=== PATIENT | female | born 1950 | race Caucasian/White ===

== ENCOUNTER → 2018-07-17 17:25 | Outpatient (CLI) | payer MEDICARE ==
[~2018-07-17 17:25] MED LIST: ALDACTONE50 MG PO; CALAN SR240 MG PO; CELEXA20 MG PO; CYMBALTA30 MG PO; ELIQUIS2.5 MG PO; KEFLEX500 MG PO; LIPITOR40 MG PO; OXYCODONE HCL5 MG PO; POTASSIUM CHLO10 ME1 PO; TRIAMTERENE-HCT1 TA1 PO; TYLENOL #4 W/CO1 TAB PO; VISTARIL50 MG PO; ZYLOPRIM300 MG PO
[2018-08-05 14:35] VITALS: BMI 37.1
== END | disposition home or self-care (01) ==
LOC: D.LABREF 17:25
DX: M17.12 Unilateral primary osteoarthritis, left knee (principal); Z11.8 Encounter for screening for other infectious and parasitic diseases

== ENCOUNTER 2018-07-30 10:00 | Inpatient (IN) | payer OTHER ==
[~2018-07-30] VITALS: Ht 162.6 cm; Wt 98.2 kg
--- NOTE | ~2018-07-30 | OP ---
PATIENT NAME: GARTH PENNINGTON MEDICAL RECORD: [id number] :46 LOCATION:[id number] ADMISSION DATE:08/05/18 SURGEON: RODO WESTBROOK DO DATE OF OPERATION: 08/05/2018 PROCEDURE PERFORMED: Left total knee arthroplasty. PREOPERATIVE DIAGNOSIS: Severe left knee osteoarthritis. POSTOPERATIVE DIAGNOSIS: Severe left knee osteoarthritis. INDICATIONS: Ms. Pennington is a 68-year-old female who presented to my office a few weeks ago after having been treated by her family practice physician very well for knee osteoarthritis. She was to the point where conservative management was no longer working. We had x-rays, standing x-rays revealed severe swin-nw-ewyh arthritis with medial shift of the femur on the tibia. She was aware that she needs something done surgically that she is at higher risk for infection due to her size, but she needed something done. She is aware of the risks of infection, bleeding, damage to nerves, vessels, even fracture. When she consented to this, she is aware of the pre and postop protocols and that her motion was not good preoperatively and may not be good postoperatively either when she was aware that she consented to the procedure. SURGEON: Rodo Westbrook DO DESCRIPTION OF PROCEDURE: The patient was given a block by anesthesia preoperatively, taken to the operative suite, laid in supine position. The left lower extremity was prepped and draped in sterile fashion. Timeout was performed, everyone was in agreement of correct side, site, patient, and procedure. After the patient had been given gentamicin and Ancef, the incision was made in the midline of the anterior knee. Careful dissection was made down to the capsule. A capsulotomy was performed, medial patella was then everted. The fat pad was removed partially and once the fat pad had been removed, the patella had been everted and milled down to accommodate the implant. The knee was then flexed up. The distal femur was cut. Once the skin was cut, the tibia and was cut and then recut and then the menisci were removed. The whole time coagulation was done. The tourniquet was inflated prior to making the incision and Esmarch was used to exsanguinate the left lower extremity and was up for 62 minutes throughout the procedure. Once the tibia had been cut and then recut in order to accommodate for the implant, the menisci were removed. The posterior capsule was treated with the Aquamantys to prevent bleeding and all the bleeding areas were treated with it as well. The knee was then flexed up and the femur was sized to be a 60. The cuts were made and once the cuts were made, the trial was put into place. She did have extreme laxity medially, likely due to the femur being shifted and her preoperative x-rays were noted. We decided to do a posterior stabilized femur to get more rigid implant and then the femur was cut. The PS block was put on the femur and this was cut for the notch. The tibia was then punched and drilled and irrigated and the patella was also drilled to use a size 28 patella and once the tibia was done and prepped, the cement was mixed and the cement was put on the tibia and on the implant and impacted in place twice. Excess cement was removed. The femur was impacted into place and the poly was put in between them and brought into extension and then the patella was put in with the cement on the patella and the patellar implant and a squeezer was put into place. Excess cement was removed that. The knee was thoroughly irrigated. Tourniquet was let down at 62 minutes. Once the OPERATIVE REPORT [id number] [facility] tourniquet was let down, all areas were treated with the Aquamantys and then sized to be an 18 poly, posterior stabilized. This was put in and seemed to be very stable. The vancomycin powder was then put into the knee joint as well as Surgicel beads. A #1 runner was used to close the capsule in a vxbxpn-qa-bsqyw fashion and then Stratafix barbed. A #1 suture was used and ran along the capsule as well. The skin was then closed with 2-0 Vicryl in an inverted interrupted fashion and ZipLine was put on the skin to keep it closed. Adaptic, 4 x 4s, ABD, Webril and then Mike wrap were placed on the knee and a RACHAEL hose stockinette placed on the knee. The patient was then awakened and taken to recovery in stable condition. Blood loss approximately 150 mL. Complications were none. TRANSINT:[id number] Voice Confirmation ID: [id number] DOCUMENT ID: [id number] RODO WESTBROOK DO at [id number] CC: [id number] DICTATION DATE: 08/05/18 1350 PLUNGER SHOVEL OPERATOR: 08/05/18 1420 ADM IN [place] [id number] [place] [id number]
[2018-07-30] MEDS ORDERED: ALDACTONE50 MG PO (12:08)
[2018-07-30] MEDS ORDERED: TYLENOL #4 W/CO1 TAB PO (12:08)
[2018-07-30 12:18] LABS: BASOPHILS 0.2 % (0-2); EOSINOPHILS 1.5 % (0-7); HEMATOCRIT 44.3 % (36.0-48.0); HEMOGLOBIN 14.4 g/dL (12-16); IMMATURE GRANULOCYTES 0.2 % (0-5); LYMPHOCYTES 23.2 % (15-50); MCHC 32.5 g/dL (31.0-37.0); MCV 86.2 fL (80.0-100.0); MEAN PLATELET VOLUME 9.7 fL (7.4-10.4); MONOCYTES 6.5 % (2-11); NEUTROPHILS 68.4 % (40-80); PLATELET COUNT 360 10x3/uL (130-400); RBC 5.14 10x6/uL (4.00-5.40); RDW 15.1 % (11.5-14.5)
[2018-07-30 12:19] LABS: ANION GAP 13.9 mmol/L (8-16); CARBON DIOXIDE 24.9 mmol/L (21.0-32.0); CREATININE - SERUM 1.6 mg/dL (0.6-1.3); POTASSIUM - SERUM 4.8 mmol/L (3.5-5.1)
[2018-07-30 12:31] LABS: APPEARANCE SL CLDY (CLEAR); BILIRUBIN NEGATIVE (NEGATIVE); COLOR YELLOW (YELLOW); EPITHELIAL CELLS 0-5 /hpf (0-5); GLUCOSE NEGATIVE (NEGATIVE); KETONE NEGATIVE (NEGATIVE); NITRITE POSITIVE (NEGATIVE); PROTEIN NEGATIVE (NEGATIVE); RED CELLS - URINE RARE /hpf (0-5); SPECIFIC GRAVITY 1.015 (1.005-1.020); UROBILINOGEN NORMAL (NORMAL)
[2018-07-30 12:32] LABS: BACTERIA MANY /hpf (NONE SEEN); HYALINE CAST RARE /lpf (NONE SEEN); MUCUS <1+ /lpf (NONE SEEN)
[2018-07-30] MEDS ORDERED: TRIAMTERENE-HCT1 TA1 PO (12:32)
[2018-07-30] MEDS ORDERED: POTASSIUM CHLO10 ME1 PO (12:33)
[2018-07-30] MEDS ORDERED: CYMBALTA30 MG PO (12:33)
[2018-07-30] MEDS ORDERED: ZYLOPRIM300 MG PO (12:33)
[2018-07-30] MEDS ORDERED: CALAN SR240 MG PO (12:33)
[2018-07-30] MEDS ORDERED: CELEXA20 MG PO (12:34)
[2018-07-30] MEDS ORDERED: LIPITOR40 MG PO (12:34)
[2018-07-30 12:37] LABS: INR 1.06 (0.85-1.17); PROTIME 13.4 SECONDS (11.6-15.0)
[2018-08-05 09:25] VITALS: BP 101/64; BMI 37.1
[2018-08-05 10:28] LABS: BASOPHILS 0.6 % (0-2); EOSINOPHILS 1.8 % (0-7); HEMATOCRIT 43.2 % (36.0-48.0); IMMATURE GRANULOCYTES 0.1 % (0-5); LYMPHOCYTES 19.6 % (15-50); MCH 28.2 pg (26.0-34.0); MCHC 32.4 g/dL (31.0-37.0); MCV 86.9 fL (80.0-100.0); MEAN PLATELET VOLUME 9.8 fL (7.4-10.4); MONOCYTES 8.5 % (2-11); NEUTROPHILS 69.4 % (40-80); PLATELET COUNT 294 10x3/uL (130-400); RBC 4.97 10x6/uL (4.00-5.40); RDW 15.2 % (11.5-14.5)
[2018-08-05 14:31] VITALS: BP 151/73
[2018-08-05 14:35] VITALS: Ht 162.6 cm; Wt 98.2 kg
[2018-08-05 16:14] VITALS: BP 151/73
[2018-08-05 20:00] VITALS: BP 111/50
[2018-08-06 08:20] LABS: BASOPHILS 0.1 % (0-2); EOSINOPHILS 0 % (0-7); HEMATOCRIT 38.7 % (36.0-48.0); HEMOGLOBIN 12.4 g/dL (12-16); IMMATURE GRANULOCYTES 0.3 % (0-5); LYMPHOCYTES 5.5 % (15-50); MCH 27.6 pg (26.0-34.0); MEAN PLATELET VOLUME 9.6 fL (7.4-10.4); MONOCYTES 9.9 % (2-11); NEUTROPHILS 84.2 % (40-80); PLATELET COUNT 270 10x3/uL (130-400); RDW 14.9 % (11.5-14.5)
[2018-08-06 08:28] VITALS: BP 122/55
[2018-08-06 08:40] LABS: ALBUMIN 3.1 g/dL (3.4-5.0); ANION GAP 10.5 mmol/L (8-16); BILIRUBIN - TOTAL 0.32 mg/dL (0.2-1.3); CALCIUM 8.6 mg/dL (8.5-10.1); CARBON DIOXIDE 25.4 mmol/L (21.0-32.0); CREATININE - SERUM 1.6 mg/dL (0.6-1.3); POTASSIUM - SERUM 4.9 mmol/L (3.5-5.1); PROTEIN - SERUM 6.5 g/dL (6.4-8.2)
[2018-08-06 11:10] VITALS: BP 112/55
[2018-08-06 15:53] VITALS: BP 123/56
[2018-08-06 22:11] VITALS: BP 110/53
[2018-08-07 04:12] VITALS: BP 107/45
[2018-08-07 05:54] LABS: BASOPHILS 0.1 % (0-2); EOSINOPHILS 0.8 % (0-7); HEMATOCRIT 35.4 % (36.0-48.0); HEMOGLOBIN 11.3 g/dL (12-16); IMMATURE GRANULOCYTES 0.3 % (0-5); LYMPHOCYTES 12.8 % (15-50); MCH 27.6 pg (26.0-34.0); MCHC 31.9 g/dL (31.0-37.0); MCV 86.3 fL (80.0-100.0); MEAN PLATELET VOLUME 10.2 fL (7.4-10.4); MONOCYTES 13.1 % (2-11); NEUTROPHILS 72.9 % (40-80); PLATELET COUNT 251 10x3/uL (130-400); RDW 15.2 % (11.5-14.5); WBC 11.4 10x3/uL (4.8-10.8)
[2018-08-07 06:24] LABS: ALBUMIN 2.9 g/dL (3.4-5.0); BILIRUBIN - TOTAL 0.22 mg/dL (0.2-1.3); CALCIUM 8.2 mg/dL (8.5-10.1); CARBON DIOXIDE 23.7 mmol/L (21.0-32.0); CREATININE - SERUM 1.6 mg/dL (0.6-1.3); PROTEIN - SERUM 5.6 g/dL (6.4-8.2)
[2018-08-07 06:49] LABS: POTASSIUM - SERUM 5.7 mmol/L (3.5-5.1)
[2018-08-07 09:23] VITALS: BP 140/66
[2018-08-07 12:25] VITALS: BP 122/56
[2018-08-07 17:02] VITALS: BP 131/67
[2018-08-07 21:08] VITALS: BP 122/60
[2018-08-08 04:45] VITALS: BP 118/53
[2018-08-08 05:09] LABS: HEMATOCRIT 36.7 % (36.0-48.0); HEMOGLOBIN 11.9 g/dL (12-16); LYMPHOCYTES 12.8 % (15-50); MCH 27.7 pg (26.0-34.0); MCHC 32.4 g/dL (31.0-37.0); MCV 85.5 fL (80.0-100.0); MEAN PLATELET VOLUME 10.2 fL (7.4-10.4); NEUTROPHILS 71.9 % (40-80); PLATELET COUNT 279 10x3/uL (130-400); RBC 4.29 10x6/uL (4.00-5.40); RDW 15.1 % (11.5-14.5); WBC 9.7 10x3/uL (4.8-10.8)
[2018-08-08 05:21] LABS: ALBUMIN 2.8 g/dL (3.4-5.0); ANION GAP 10.7 mmol/L (8-16); BILIRUBIN - TOTAL 0.26 mg/dL (0.2-1.3); CALCIUM 8.8 mg/dL (8.5-10.1); CARBON DIOXIDE 25.5 mmol/L (21.0-32.0); CREATININE - SERUM 1.4 mg/dL (0.6-1.3); POTASSIUM - SERUM 5.2 mmol/L (3.5-5.1); PROTEIN - SERUM 6.4 g/dL (6.4-8.2)
[2018-08-08 08:52] VITALS: BP 140/64
[2018-08-08 11:45] VITALS: BP 126/71
[2018-08-08] MEDS ORDERED: ELIQUIS2.5 MG PO (15:49)
[2018-08-08] MEDS ORDERED: OXYCODONE HCL5 MG PO (15:50)
[2018-08-08] MEDS ORDERED: VISTARIL50 MG PO (15:50)
[2018-08-08] MEDS ORDERED: KEFLEX500 MG PO (15:50)
== END 2018-08-08 17:03 | disposition home health service (06) | DRG 470 ==
LOC: D.MS 08-05 08:30 → D.SDCHOLD 08-05 08:30 → D.MS 08-05 14:01
PROVIDERS: Anesthesiology; Family Medicine; Orthopaedic Surgery
PROC: 0SRD0J9 Replacement of Left Knee Joint with Synthetic Substitute, Cemented, Open Approach (ICD-10-PCS; principal; 2018-08-05 10:45)
DX: M17.12 Unilateral primary osteoarthritis, left knee (principal); N39.0 Urinary tract infection, site not specified; E66.9 Obesity, unspecified; Z68.37 Body mass index [BMI] 37.0-37.9, adult; I10 Essential (primary) hypertension

== ENCOUNTER → 2019-03-12 10:10 | Outpatient (CLI) | payer OTHER | END | disposition home or self-care (01) | LOC: D.LABREF 10:10 | DX: M19.011 Primary osteoarthritis, right shoulder (principal) ==